=== PATIENT | female | born 2000 | race Caucasian/White ===

== ENCOUNTER 2020-04-20 09:09 | Outpatient (CLI) | payer OTHER ==
[2020-04-20 21:58] LABS: SARS-CoV-2 MS2 Positive; SARS-CoV-2 N Gene Negative; SARS-CoV-2 S Gene Negative; SARS-CoV-2 by NAA Not Detected (NotDetected); SARS-CoV-2 orf1ab Negative
== END 2020-04-20 09:10 | disposition home or self-care (01) ==
LOC: LABBT 09:09
PROVIDERS: ATTEND Obstetrics & Gynecology
DX: Z01.812 Encounter for preprocedural laboratory examination (principal); Z20.822 Contact with and (suspected) exposure to COVID-19
CPT/HCPCS: 87635; U0003

== ENCOUNTER 2020-04-23 18:00 | Inpatient (IN) | payer OTHER ==
[~2020-04-23 18:00] MED LIST: Bupivacaine 0.25% HCL 30 ML VIAL ONE; Sodium Chloride 0.9% (PF) 10 ML VIAL ONE
[2020-04-23] MEDS: Lactated Ringer's 1,000 ML IV SCH (19:30)
[2020-04-23 19:40] VITALS: BMI 37.8
[2020-04-23] MEDS ORDERED: Butorphanol Tartrate 1 MG/ML VIAL SLOW IVP PRN (19:41)
[2020-04-23] MEDS ORDERED: Ibuprofen 800 MG TAB PO PRN (19:41)
[2020-04-23] MEDS ORDERED: Ondansetron PF 4 MG/2 ML Vial IVP PRN (19:41)
[2020-04-23] MEDS ORDERED: Docusate 100 MG CAP PO PRN (19:41)
[2020-04-23] MEDS ORDERED: Diphenoxylate HCl/Atropine Tablet PO PRN ×2 (19:41)
[2020-04-23] MEDS ORDERED: Carboprost 250 MCG/ML AMP IM PRN (19:41)
[2020-04-23] MEDS ORDERED: Promethazine HCl 25 MG/ML VIAL IM PRN (19:41)
[2020-04-23] MEDS ORDERED: Acetaminophen 500 MG TAB PO PRN (19:41)
[2020-04-23] MEDS ORDERED: HYDROcodone/Acetaminophen 5/325 mg Tablet PO PRN ×2 (19:41)
[2020-04-23] MEDS ORDERED: Lidocaine 1% (PF) 30 ML VIAL SC PRN (19:41)
[2020-04-23] MEDS ORDERED: Misoprostol 200 MCG TAB PR PRN (19:41)
[2020-04-23] MEDS ORDERED: hydrALAZINE 20 MG/ML VIAL SLOW IVP PRN (19:41)
--- NOTE | 2020-04-23 19:48 | PDOC.LDHP ---
Labor and Delivery H&P HPI: 20 y/o at 37 and 5/7 weeks presents with a dx of JYOTSNA for a term medical induction of labor. Current gestational age (weeks): 37 Due date: 05/09/20 Grav: 1 Para: 0 Current complications: gestational hypertension Abnormal US findings: No Current medications: pre- vitamins Allergies/Adverse Reactions: Allergies Allergy/AdvReac Type Severity Reaction Status Date / Time No Known Allergies Allergy Verified 04/23/20 19:30 Social history: none - Physical Exam Vital signs reviewed and normal: yes General: NAD, resting Heart: RRR Lungs: CTAB Abdomen: gravid Extremeties: no edema FHT: category 1 - Assessment L&D Assessment: medically indicated induction - Plan Plan: admit to L&D, cervical ripening
[2020-04-23] MEDS: Misoprostol 100 MCG TAB VAG SCH (20:01)
[2020-04-23 20:10] LABS: Hemoglobin 10.7 g/dL (12.0-16.0); Mean Corpuscular HGB CONC 32.4 g/dL (32.0-36.0); Mean Corpuscular Hemoglobin 22.9 pg (25.0-35.0); Mean Corpuscular Volume 70.6 fL (78.0-98.0); Platelet Count 263 thou/uL (130-400); RBC Distribution Width 19.1 % (11.5-14.5); Red Blood Cell (RBC) Count 4.67 mill/uL (4.00-5.20); White Blood Cell (WBC) Count 10.3 thou/uL (4.8-10.8)
[2020-04-23 20:35] LABS: ALT (SGPT) Less than 7 U/L (8-55); AST (SGOT) 9 U/L (5-34); Albumin 3.2 g/dL (3.5-5.0); Alkaline Phosphatase 115 U/L (40-100); Anion Gap 15 mmol/L (10-20); BUN (Urea Nitrogen) 6 mg/dL (7.0-18.7); Bilirubin, Total 0.2 mg/dL (0.2-1.2); Calc. Creatinine Clearance 231 mL/min (70-130); Calcium 8.6 mg/dL (7.8-10.44); Carbon Dioxide 21 mmol/L (22-29); Chloride 106 mmol/L (98-107); Globulin 3.2 g/dL (2.4-3.5); Glucose 102 mg/dL (70-105); Potassium 3.8 mmol/L (3.5-5.1); Protein, Total 6.4 g/dL (6.0-8.3); Sodium 138 mmol/L (136-145)
[2020-04-23 20:54] LABS: Syphilis Antibody Nonreactive (Nonreactive); Syphilis Antibody Index 0.02 S/CO (<1.00 Non-Reactive)
[2020-04-24 00:30] LABS: HBSAg Index 0.17 S/CO (0-0.99); Hep B Surf Ag Non-Reactive S/CO (NonReactive)
[2020-04-24] MEDS: Misoprostol 100 MCG TAB VAG SCH ×8 (01:13→21:12)
[2020-04-24] MEDS: Lactated Ringer's 1,000 ML IV SCH ×3 (06:14→21:12)
[2020-04-24] MEDS ORDERED: FLU VACC QS2020-21(6MOS UP)/PF 60 MCG/0.5 ML SYRINGE IM ONE (09:00)
[2020-04-24] MEDS ORDERED: Fentanyl 4 mcg/Bup 0.1% Cadd 100 ML ONE (20:07)
[2020-04-25] MEDS ORDERED: diphenhydrAMINE 50 MG/ML VIAL IVP PRN (01:19)
[2020-04-25] MEDS ORDERED: Ondansetron PF 4 MG/2 ML Vial IVP PRN ×2 (01:19→05:04)
[2020-04-25] MEDS ORDERED: ePHEDrine 50 MG/ML VIAL SLOW IVP PRN (01:19)
[2020-04-25] MEDS ORDERED: Naloxone HCl 0.4 mg/ml Vial IVP PRN ×2 (01:19)
[2020-04-25] MEDS ORDERED: Promethazine HCl 25 MG/ML VIAL IM PRN ×2 (01:19→05:04)
[2020-04-25] MEDS ORDERED: Acetaminophen 325 MG TAB PO PRN (01:19)
[2020-04-25] MEDS ORDERED: Lactated Ringer's 500 ML IV PRN (01:19)
[2020-04-25] MEDS ORDERED: Communication Order-Pharmacy FS SCH (01:30)
[2020-04-25] MEDS ORDERED: Fentanyl 4 mcg/Bupivacaine 0.1% Cassette 100 ML EPIDURAL SCH (01:30)
[2020-04-25] MEDS: NS w/ Oxytocin 30 units 1,000 ML IV PRN ×2 (03:00→04:28)
[2020-04-25] MEDS: Misoprostol 100 MCG TAB VAG SCH ×2 (03:44→05:48)
[2020-04-25] MEDS: Lactated Ringer's 1,000 ML IV SCH (03:45)
[2020-04-25] MEDS ORDERED: diphenhydrAMINE 25 MG CAP PO PRN (05:04)
[2020-04-25] MEDS ORDERED: Preparation H Ointment 28 GM TUBE PR PRN (05:04)
[2020-04-25] MEDS ORDERED: hydrALAZINE 20 MG/ML VIAL SLOW IVP PRN (05:04)
[2020-04-25] MEDS ORDERED: Bisacodyl 10 MG SUPP PR PRN (05:04)
[2020-04-25] MEDS ORDERED: Misoprostol 200 MCG TAB VAG PRN (05:04)
[2020-04-25] MEDS ORDERED: Benzocaine-Menthol 82.5 ML CAN TOP PRN (05:04)
[2020-04-25] MEDS ORDERED: Zolpidem Tartrate 5 MG TAB PO PRN (05:04)
[2020-04-25] MEDS ORDERED: Lanolin Ointment 7 GM TUBE TOP PRN (05:04)
[2020-04-25] MEDS ORDERED: HYDROcodone/Acetaminophen 5/325 mg Tablet PO PRN ×2 (05:04)
[2020-04-25] MEDS ORDERED: NS / Oxytocin 40 units/1000ml 1,000 ML IV SCH (05:04)
[2020-04-25] MEDS ORDERED: Milk Of Magnesia 30 ML UDCUP PO PRN (05:04)
[2020-04-25] MEDS: Ibuprofen 800 MG TAB PO SCH ×3 (05:59→22:27)
[2020-04-25] MEDS ORDERED: Measles/Mumps/Rubella 10 MCG/0.5 ML VIAL SC ONE (09:00)
[2020-04-25] MEDS ORDERED: Varicella virus, LIVE 0.5 ML VIAL SC ONE (09:00)
[2020-04-25] MEDS ORDERED: Adacel (T-DAP) 0.5 ML SYRINGE IM ONE (09:00)
[2020-04-25] MEDS: Docusate Calcium (SURFAK) 240 MG CAP PO SCH ×2 (09:06→22:28)
[2020-04-25] MEDS: Prenatal Vitamin 1 TAB PO SCH (09:06)
[2020-04-25] MEDS: Ferrous Sulfate 325 MG TAB PO SCH ×2 (09:07→15:18)
[2020-04-26] MEDS: Ibuprofen 800 MG TAB PO SCH ×2 (05:53→14:30)
[2020-04-26 07:34] LABS: Hemoglobin 8.7 g/dL (12.0-16.0); Mean Corpuscular HGB CONC 30.6 g/dL (32.0-36.0); Mean Corpuscular Hemoglobin 22.2 pg (25.0-35.0); Mean Corpuscular Volume 72.5 fL (78.0-98.0); Mean Platelet Volume 8.5 fL (7.4-10.4); Platelet Count 197 thou/uL (130-400); Red Blood Cell (RBC) Count 3.91 mill/uL (4.00-5.20); White Blood Cell (WBC) Count 12.6 thou/uL (4.8-10.8)
[2020-04-26] MEDS: Docusate Calcium (SURFAK) 240 MG CAP PO SCH (09:02)
[2020-04-26] MEDS: Prenatal Vitamin 1 TAB PO SCH (09:02)
[2020-04-26] MEDS: Ferrous Sulfate 325 MG TAB PO SCH ×2 (09:02→18:55)
[2020-04-26] MEDS ORDERED: FLU VACC QS2020-21(6MOS UP)/PF 60 MCG/0.5 ML SYRINGE IM ONE (19:00)
[2020-04-26 20:45] VITALS: BP 138/65; TEMP 98.5
== END 2020-04-26 21:28 | disposition home or self-care (01) | DRG 807 ==
LOC: L&D 18:34 → 3SW 04-25 05:26
PROVIDERS: ADMIT Obstetrics & Gynecology; ATTEND Obstetrics & Gynecology
PROC: 10E0XZZ Delivery of Products of Conception, External Approach (ICD-10-PCS; principal; 2020-04-25)
DX: O13.4 Gestational [pregnancy-induced] hypertension without significant proteinuria, complicating childbirth (principal); Z37.0 Single live birth; Z20.822 Contact with and (suspected) exposure to COVID-19; Z23 Encounter for immunization; Z3A.37 37 weeks gestation of pregnancy
CPT/HCPCS: 36415; 80053; 85027; 86780; 86850; 86900; 86901; 87340; 90471; 90662; 90715; G0008; J0595; J2590

== ENCOUNTER 2020-04-28 17:28 | Inpatient (IN) | payer OTHER ==
[2020-04-28 18:37] LABS: #Eosinphils 0.3 thou/uL (0.0-0.7); #Lymphocytes 1.7 thou/uL (1.20-3.40); #Neutrophils 8.5 thou/uL (1.40-6.50); %Basophils 0.1 % (0.0-1.0); %Eosinophils 2.5 % (0.0-10.0); %Monocytes 8.7 % (0.0-4.0); %Neutrophils 73.6 % (31.0-61.0); Hemoglobin 9.5 g/dL (12.0-16.0); Mean Corpuscular Hemoglobin 22.8 pg (25.0-35.0); Mean Corpuscular Volume 71.3 fL (78.0-98.0); Mean Platelet Volume 8.2 fL (7.4-10.4); Platelet Count 268 thou/uL (130-400); RBC Distribution Width 19.4 % (11.5-14.5); Red Blood Cell (RBC) Count 4.17 mill/uL (4.00-5.20); White Blood Cell (WBC) Count 11.5 thou/uL (4.8-10.8)
[2020-04-28 18:57] LABS: ALT (SGPT) 16 U/L (8-55); AST (SGOT) 20 U/L (5-34); Albumin 3.1 g/dL (3.5-5.0); Alkaline Phosphatase 90 U/L (40-100); Anion Gap 16 mmol/L (10-20); BUN (Urea Nitrogen) 9 mg/dL (7.0-18.7); Bilirubin, Total 0.2 mg/dL (0.2-1.2); Calc. Creatinine Clearance 0 mL/min (70-130); Calcium 8.7 mg/dL (7.8-10.44); Carbon Dioxide 24 mmol/L (22-29); Chloride 104 mmol/L (98-107); Globulin 3.3 g/dL (2.4-3.5); Glucose 64 mg/dL (70-105); Potassium 3.5 mmol/L (3.5-5.1); Protein, Total 6.4 g/dL (6.0-8.3); Sodium 140 mmol/L (136-145)
--- NOTE | 2020-04-28 19:29 | ULT ---
TRANSABDOMINAL PELVIC ULTRASOUND WITH STACK SCALE, COLOR FLOW AND SPECTRAL DOPPLER IMAGIN04/28/20 HISTORY: Vaginal bleeding, pelvic cramping. Patient gave three days ago. Reports something hanging out o f her vaginal canal. FINDINGS: The patient refused transvaginal exam. FINDINGS: The uterus is enlarged measuring 16.3 x 9 x 11.6 cm. The endometrium is thickened measuring 19 mm wit h echogenic material within the endometrial cavity. The right ovary measures 4.2 x 2.4 x 2.6 cm and the left ovary measures 3.2 x 2.5 x 1.5 cm. No adnexa l mass or free fluid in the cul-de-sac is seen. Flow is demonstrated to both ovaries. IMPRESSION: Findings suggestive of retained products of conception in the endometrial cavity. POS: OFF
[2020-04-28] MEDS ORDERED: Piperacillin/Tazobactam 4.5 GM VIAL ONE (21:09)
[2020-04-28] MEDS ORDERED: Calcium Carbonate 500 MG ChewTAB PO PRN (21:44)
[2020-04-28] MEDS ORDERED: Ondansetron ODT 4 MG TAB PO PRN (21:44)
[2020-04-28] MEDS ORDERED: Ibuprofen 800 MG TAB PO PRN (21:55)
--- NOTE | 2020-04-28 21:57 | PDOC.H&P ---
<Malini Gibson - Last Filed: 04/28/20 22:37> - History & Physical Encounter Time: 04/28/20 Encounter Time: 19:30 HPI: 20YO who is PP day #2 s/p who presented to the ER for evaluation for vaginal bleeding/discharge. Patient reports earlier today at home she not iced some "tissue" coming out of her vagina. States it had an odor to it and she was afraid to pull it out herself. 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 States she then called PP at [facility] who told her to come to the ED for evaluation. Denies any associated fever/chills or N/V. 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 Labs/Imaging: WBC: 11.5 H/H: 9.5/29.8 Plts: 268 BUN: 9 Cr: 0.77 AST/ALT: 20/16 Alk phos: 90 Pelvic US: uterus is enlarged measuring 16.3x9x11.6 cm. Endometrium is thickened measuring 19 mm with echogenic material within the endometrial cavity. Findings suggestive of retained products of conception within the endometrial cavity. Vitals: BP: 137/84 HR: 95 RR: 19 Temp: 98.0F O2 sat: 99% on RA Physical Exam: General: Laying in bed in NAD HEENT: Normocephalic, atraumatic, grossly normal hearing & vision Neck: Supple, FROM Lungs: No respiratory distress on RA : Scant amount of blood with necrotic membranous tissue protruding from vagina that was easily removed with ring forceps. Following speculum placement a large piece of necrotic, malodorous tissue was removed from the vaginal vault. Following removal of all tissue a closed cervix was noted without any bleeding. Moderate cervical motion tenderness also noted on exam. Neuro: Alert & oriented, nonfocal, thermal intelligence analyst grossly intact Psych: Normal mood & affect A/P: 1. PP Endometritis suspected to be 2/2 retained products of conception: Patient had some cervical motion tenderness on exam with a mild leukocytosis of 11.5 on presentation. Tissue removed on exam appeared to be membranes attached to what is suspected to be a small placental accessory lobe. Will send tissue to path for confirmation. S/p IV zosyn in the ER. Will admit to PP for continued IV abx w/ Zosyn 3.375g q6hr w/ addition of metronidazole 500mg Q8HR for anaerobic coverage for at least 24 hours. PRN tylenol & motrin for pain and/or fever. Tolerating PO & non-septic appearing so ok for PO hydration only. 2. Suspected retained products of conception: Large amount of necrotic tissue that appeared to be membranes attached to a placental accessory lobe removed on exam. Will send tissue to path for confirmation. Will give cytotec 100mcg Q6HR x 3 doses to encourage expulsion of any additional tissue that may no have been removed on exam. Will continue to monitor closely for excessive blood loss. No bleeding noted after removal of tissue in ED. VSS. 3. Hx gHTN: 2 elevated BPs in the ED but none in severe range. Patient asymptomatic. CMP & Plts WNLs on presentation. Will continue to monitor BPs closely on the floor. 4. Anemia: H/H 9.5/29.8 on presentation. Reportedly on PO iron at home. Will resume while inpatient. 5. PP day #2 s/p : Aware, will continue routine PP care & resume QD PNVs & PRN motrin & tylenol for pain control. Dispo: Will admit to PP for continued IV abx for endometritis likely 2/2 retained products of conception. Will also give PO cytotec Q6HR x3 to encourage any additional retained product expulsion. Anticipated LOS ~2 midnights pending clinical course. Abx: Zosyn & flagyl IVFs: SL Diet: Regular VTE PPX: walking program GI PPX: None <Altaf Gomez - Last Filed: 04/29/20 02:44> Addendum - Attending - Attending Attestation Date/Time: 04/29/20 [id number] I personally evaluated the patient and discussed the management with Dr. Gibson. Pt. of Dr. Dumont now PPD#2 with retained membranes and endometritis admitted for ABX. I agree with the History, Examination, Assessment and Plan documented above.
[2020-04-28] MEDS ORDERED: metroNIDAZOLE 500 MG in Premix Bag 1 BAG IVPB SCH (22:00)
[2020-04-28] MEDS ORDERED: Lanolin Ointment 7 GM TUBE TOP PRN (22:30)
[2020-04-28] MEDS ORDERED: Preparation H Ointment 28 GM TUBE PR PRN (22:30)
[2020-04-28] MEDS ORDERED: Milk Of Magnesia 30 ML UDCUP PO PRN (22:30)
[2020-04-28] MEDS ORDERED: Zolpidem Tartrate 5 MG TAB PO PRN (22:30)
[2020-04-28] MEDS ORDERED: Bisacodyl 10 MG SUPP PR PRN (22:30)
[2020-04-28] MEDS ORDERED: diphenhydrAMINE 25 MG CAP PO PRN (22:30)
[2020-04-28] MEDS ORDERED: hydrALAZINE 20 MG/ML VIAL SLOW IVP PRN (22:30)
[2020-04-28] MEDS ORDERED: NS / Oxytocin 40 units/1000ml 1,000 ML IV SCH (22:30)
[2020-04-28] MEDS ORDERED: Piperacillin/Tazobactam 3.375 GM in Sodium Chloride 0.9% 100 ML IVPB SCH (23:59)
[2020-04-28] MEDS ORDERED: Misoprostol 100 MCG TAB PO SCH (23:59)
[2020-04-29 00:59] VITALS: BMI 35.6
[2020-04-29] MEDS: Acetaminophen 500 MG TAB PO SCH ×4 (01:31→23:21)
[2020-04-29] MEDS ORDERED: Piperacillin/Tazobactam 3.375 GM in Sodium Chloride 0.9% 100 ML IVPB SCH (03:00)
[2020-04-29] MEDS: Piperacillin/Tazobactam 3.375 GM in Sodium Chloride 0.9% 100 ML IVPB SCH ×4 (04:11→21:19)
--- NOTE | 2020-04-29 06:05 | PDOC.PP ---
Post Progress Note Post Day #: PPD3 Subjective: Zosyn/Flagyl #1 Resting. Feels well, no complaints. PO intake tolerated: yes Ambulation: yes Vital Signs (12 hours) Temp Pulse Resp BP Pulse Ox 04/29/20 04:16 98.1 F 93 18 101/59 L 98 04/29/20 00:15 99.1 F 106 H 18 144/79 H 100 Weight Weight 101.831 kg - Physical Examination General: NAD Respiratory: non-labored breathing Abdominal: appropriately TTP Neurological: no gross focal deficits Psychiatric: normal affect Result Diagrams: 04/28/20 18:24 04/28/20 18:24 Additional Labs: Post Labs Blood Type A POSITIVE 04/28/20 18:24 - Assessment/Plan Nonfocal exam this AM. Cont. ABX. Anticipate DC in AM.
[2020-04-29] MEDS: Ferrous Sulfate 325 MG TAB PO SCH (07:51)
[2020-04-29] MEDS: Docusate Calcium (SURFAK) 240 MG CAP PO SCH ×2 (07:51→21:18)
[2020-04-29] MEDS: Misoprostol 100 MCG TAB PO SCH ×2 (07:52→14:10)
[2020-04-29] MEDS: Prenatal Vitamin 1 TAB PO SCH (07:52)
[2020-04-29] MEDS ORDERED: FLU VACC QS2020-21(6MOS UP)/PF 60 MCG/0.5 ML SYRINGE IM ONE (09:00)
[2020-04-29 10:04] LABS: #Eosinphils 0.3 thou/uL (0.0-0.7); #Lymphocytes 1.5 thou/uL (1.20-3.40); #Monocytes 0.8 thou/uL (0.11-0.59); #Neutrophils 6.9 thou/uL (1.40-6.50); %Basophils 0.4 % (0.0-1.0); %Lymphocytes 15.4 % (28.0-48.0); %Monocytes 8.4 % (0.0-4.0); %Neutrophils 72.8 % (31.0-61.0); Hemoglobin 9.4 g/dL (12.0-16.0); Mean Corpuscular HGB CONC 31.7 g/dL (32.0-36.0); Mean Corpuscular Hemoglobin 22.6 pg (25.0-35.0); Mean Corpuscular Volume 71.3 fL (78.0-98.0); Mean Platelet Volume 8.5 fL (7.4-10.4); Platelet Count 223 thou/uL (130-400); RBC Distribution Width 19.2 % (11.5-14.5); Red Blood Cell (RBC) Count 4.15 mill/uL (4.00-5.20); White Blood Cell (WBC) Count 9.5 thou/uL (4.8-10.8)
[2020-04-29 10:24] LABS: ALT (SGPT) 13 U/L (8-55); AST (SGOT) 19 U/L (5-34); Albumin 2.6 g/dL (3.5-5.0); Alkaline Phosphatase 78 U/L (40-100); Anion Gap 15 mmol/L (10-20); BUN (Urea Nitrogen) 8 mg/dL (7.0-18.7); Bilirubin, Total 0.2 mg/dL (0.2-1.2); Calc. Creatinine Clearance 212 mL/min (70-130); Calcium 8.2 mg/dL (7.8-10.44); Carbon Dioxide 21 mmol/L (22-29); Chloride 108 mmol/L (98-107); Globulin 2.9 g/dL (2.4-3.5); Glucose 120 mg/dL (70-105); Potassium 3.6 mmol/L (3.5-5.1); Protein, Total 5.5 g/dL (6.0-8.3); Sodium 140 mmol/L (136-145)
[2020-04-29] MEDS: metroNIDAZOLE 500 MG in Premix Bag 1 BAG IVPB SCH ×2 (10:42→17:37)
--- NOTE | 2020-04-29 15:25 | PDOC.EVN ---
Event Note - Event Note Event Note: HPI: 20YO who is PP day #3 s/p who presented to the ER for evaluation for vaginal bleeding/discharge. Denied any associated fever/chills or N/V. 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 Pelvic US: uterus is enlarged measuring 16.3x9x11.6 cm. Endometrium is thickened measuring 19 mm with echogenic material within the endometrial cavity. Findings suggestive of retained products of conception within the endometrial cavity. Physical Exam: General: Laying in bed in NAD. VVSAF HEENT: Normocephalic, atraumatic, grossly normal hearing & vision Neck: Supple, FROM Lungs: No respiratory distress on RA Etrem: No C/C/E Neuro: Alert & oriented, nonfocal, equipment tester grossly intact Psych: Normal mood & affect A: 1. PP retained POCs with eary/quickly resolving Endometritis. Patient on Antibiotics, afebrile since admission, with normal WBC count today. 2. Hx GHTN: 2 elevated BPs in the ED but none in severe range. Patient asymptomatic. CMP & Plts WNLs on presentation. Will continue to monitor BPs closely on the floor. 3. Mild Anemia: H/H 9.5/29.8 on presentation. Reportedly on PO iron at home. Will resume while inpatient. P: 1. Will DC to home tomorrow at 1100am after am antibiotics. 2. PO antibiotics for 5 additional days (Omnicef and Flagyl). 3. F/U in clini in 1 week 4. Infection, Bleeding precautions
[2020-04-30] MEDS: metroNIDAZOLE 500 MG in Premix Bag 1 BAG IVPB SCH ×2 (02:03→10:26)
[2020-04-30] MEDS: Piperacillin/Tazobactam 3.375 GM in Sodium Chloride 0.9% 100 ML IVPB SCH ×2 (04:05→09:13)
--- NOTE | 2020-04-30 06:30 | PDOC.PP ---
Post Progress Note Post Day #: 4 Subjective: feeling well. resting comfortably. [facility] is closed on Sundays so she cannot get her antibiotics there today. PO intake tolerated: yes Flatus: yes Ambulation: yes Vital Signs (12 hours) Temp Pulse Resp BP Pulse Ox 04/30/20 04:05 98.0 F 75 18 132/74 99 04/29/20 23:53 98.0 F 84 18 127/81 98 04/29/20 19:50 98.6 F 85 18 120/67 98 Weight Weight 101.831 kg - Physical Examination General: NAD Cardiovascular: no m/r/g, RRR Respiratory: clear to auscultation bilaterally Abdominal: no distention (nontender to palpation) Neurological: no gross focal deficits Psychiatric: A&Ox3, normal affect Result Diagrams: 04/29/20 09:57 04/29/20 09:57 Additional Labs: Post Labs Blood Type A POSITIVE 04/28/20 18:24 - Assessment/Plan 20 yo PPD #4 Endometritis Retained products - to go home today after IV antibiotics at 11:00 am - will re-send Rx to [facility] on so 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 Dispo: D/c today, f/u with PCP this coming week. Addendum - Attending - Attending Attestation Date/Time: 04/30/20 2255 I personally evaluated the patient and discussed the management with Dr. York. I agree with the History, Examination, Assessment and Plan documented above.
[2020-04-30 08:36] VITALS: BP 126/81; TEMP 98.2
[2020-04-30] MEDS: Acetaminophen 500 MG TAB PO SCH (09:11)
[2020-04-30] MEDS: Prenatal Vitamin 1 TAB PO SCH (09:12)
[2020-04-30] MEDS: Docusate Calcium (SURFAK) 240 MG CAP PO SCH (09:12)
[2020-04-30] MEDS: Ferrous Sulfate 325 MG TAB PO SCH (09:12)
--- NOTE | 2020-05-02 14:48 | DIS ---
DATE OF ADMISSION: 04/28/2020 DATE OF DISCHARGE: 04/30/2020 RESIDENT: Tierney York MD PRIMARY DIAGNOSES: 1. endometritis. 2. Retained products of conception, status post vaginal delivery. 3. History of gestational hypertension. 4. Anemia. HISTORY OF PRESENT ILLNESS AND HOSPITAL COURSE: The patient presented noticing some tissue coming out of her vagina on day #3. She came to the ER and a small accessory lobe of placenta was removed. She was admitted for possible endometritis and treated empirically with Zosyn and Flagyl. The patient did well overall. She is a patient of Dr. Dumont and so he also evaluated her. She was stabilized and sent home with 5 days of Omnicef and Flagyl. She was to follow up in clinic in 1 week. Job ID: [id number]
== END 2020-04-30 13:12 | disposition home or self-care (01) | DRG 769 ==
LOC: ERS 17:28 → 3SE 21:50
PROVIDERS: ADMIT Obstetrics & Gynecology; ATTEND Obstetrics & Gynecology
PROC: 10D17Z9 Manual Extraction of Products of Conception, Retained, Via Natural or Artificial Opening (ICD-10-PCS; principal; 2020-04-28)
DX: O86.12 Endometritis following delivery (principal); O99.03 Anemia complicating the puerperium; D64.9 Anemia, unspecified
CPT/HCPCS: 36415; 76856; 80053; 85025; 86850; 86900; 86901; 88305; 93976; 96365; J2543; J3490

== ENCOUNTER 2023-05-07 18:22 | Emergency (ER) | payer OTHER, SELFPAY ==
[2023-05-07 19:41] LABS: #Eosinphils 0.1 thou/uL (0.0-0.7); #Monocytes 0.5 thou/uL (0.11-0.59); %Basophils 0.2 % (0.0-1.0); %Eosinophils 2.1 % (0.0-10.0); %Lymphocytes 40.1 % (21.0-51.0); %Monocytes 12.4 % (0.0-10.0); %Neutrophils 45.2 % (42.0-75.0); Hematocrit 30.2 % (36.0-47.0); Hemoglobin 8.4 g/dL (12.0-16.0); Mean Corpuscular HGB CONC 27.8 g/dL (32.0-36.0); Mean Corpuscular Hemoglobin 18.1 pg (27.0-31.0); Mean Corpuscular Volume 64.9 fl (78.0-98.0); Mean Platelet Volume 9.3 fL (7.4-10.4); Platelet Count 259 10x3/uL (130-400); RBC Distribution Width 19.3 % (11.5-14.5); Red Blood Cell (RBC) Count 4.65 mill/uL (4.20-5.40); White Blood Cell (WBC) Count 4.4 10x3/uL (4.8-10.8)
[2023-05-07 20:02] LABS: ALT (SGPT) 14 U/L (8-55); AST (SGOT) 17 U/L (5-34); Alkaline Phosphatase 54 U/L (40-110); Anion Gap 12 mmol/L (10-20); BUN (Urea Nitrogen) 7 mg/dL (7.0-18.7); Bilirubin, Total 0.2 mg/dL (0.2-1.2); Calc. Creatinine Clearance 0 mL/min (70-130); Calcium 8.8 mg/dL (7.8-10.44); Carbon Dioxide 22 mmol/L (22-29); Chloride 108 mmol/L (98-107); Estimated GFR 118; Globulin 2.9 g/dL (2.4-3.5); Glucose 83 mg/dL (70-105); Magnesium 2.1 mg/dL (1.6-2.6); Potassium 3.4 mmol/L (3.5-5.1); Protein, Total 6.9 g/dL (6.0-8.3); Sodium 139 mmol/L (136-145)
[2023-05-07 20:04] LABS: Anisocytosis SLIGHT = 6-15 cells HPF (0-5); CellaVision Operator ID LAB.MJL; Elliptocytes SLIGHT = 2-5 cells HPF (0-1); Hypochromia MODERATE=16-30 cells HPF (0-5); Microcytosis SLIGHT = 6-15 cells HPF (0-5); Ovalocytes SLIGHT = 2-5 cells HPF (0-1); Platelet Adequacy Comment Platelets Normal; Poikilocytosis SLIGHT = 6-15 cells HPF (0-5); Polychromasia SLIGHT = 2-3 cells HPF (0-2)
== END 2023-05-07 21:40 | disposition home or self-care (01) ==
LOC: ERS 18:22
DX: J32.9 Chronic sinusitis, unspecified (principal)
CPT/HCPCS: 36415; 70450; 80053; 83735; 85025